=== PATIENT | female | born 2000 | race Caucasian/White ===

== ENCOUNTER → 2022-12-13 | Outpatient (CLI) | payer OTHER ==
[2022-12-13 13:05] LABS: Glucose 3 Hour, Gest 97 mg/dL
== END ==
LOC: LABWHC1 08:22
PROVIDERS: ATTEND Obstetrics & Gynecology
DX: O99.810 Abnormal glucose complicating pregnancy (principal); Z3A.00 Weeks of gestation of pregnancy not specified
CPT/HCPCS: 36415; 82951; 82952

== ENCOUNTER 2023-04-06 19:56 | Outpatient (CLI) | payer OTHER ==
[2023-04-06] MEDS ORDERED: LACTATED RINGERS 1,000 ML IV SCH (21:00)
[2023-04-06 21:29] LABS: Basophils % (A) 0 %; Eosinophils # (A) 0.1 k/uL (0-0.7); Eosinophils % (A) 1 %; HCT 30.4 % (34.0-46.0); HGB 9.6 gm/dL (11.4-16.0); Hypochromasia Slight; Lymphocytes # (A) 1.1 k/uL (1.0-4.8); Lymphocytes % (A) 8 %; MCH 22.8 pg (25.0-35.0); MCHC 31.7 g/dL (31.0-37.0); Mean Platelet Volume 7.4; Microcytosis Moderate; Monocytes # (A) 0.8 k/uL (0-1.0); Monocytes % (A) 5 %; Neutrophils # (A) 12.2 k/uL (1.3-7.7); Neutrophils % (A) 84 %; Platelet Count 298 k/uL (150-450); Poikilocytosis Slight; RBC 4.23 m/uL (3.80-5.40); RDW 15.9 % (11.5-15.5); WBC 14.5 k/uL (3.8-10.6)
[2023-04-06 21:30] LABS: Appearance,Urine Clear (Clear); Bilirubin,Urine Negative (Negative); Blood,Urine Negative (Negative); Color,Urine Light Yellow; Glucose,Urine (UA) Negative (Negative); Ketones,Urine Negative (Negative); Leukocyte Esterase,Urine Negative (Negative); Nitrite,Urine Negative (Negative); PH, Urine 6.5 (5.0-8.0); Protein,Urine Negative (Negative); Specific Gravity,Urine 1.013 (1.001-1.035); Urobilinogen,Urine <2.0 mg/dL (<2.0)
[2023-04-06] MEDS ORDERED: ACETAMINOPHEN IV (For NPO) 1,000 MG in EMPTY BAG 1 BAG IVPB STA (21:56)
[2023-04-07 00:42] VITALS: BP 125/68; PULSE 116; RESP 18; TEMP 98.8
--- NOTE | 2023-04-07 08:05 | P.MSEPDOC ---
Presenting Problems - Arrival Data Date of Arrival on Unit: 04/06/23 Time of Arrival on Unit: 19:56 Mode of Transport: Ambulatory - Complaint OB-Reason for Admission/Chief Complaint: Pain Comment: Pt presents to triage with c/o severe back pain that started around 1030 at. nondenominational this morning. Pt states pain is on her sides and rates it 7 out of 10 Medical History - Information : 1 Para: 0 Term: 0 : 0 Abortions: Spontaneous or Elective: 0 Number of Living Children: 0 - Gestational Age Gestational Age by ERON (wks/days): 32 Weeks and 3 Days Review of Systems - Review of Systems Constitutional: No problems Breast: No problems ENT: No problems Cardiovascular: No problems Respiratory: No problems Gastrointestinal: No problems Genitourinary: No problems Musculoskeletal: No problems Neurological: No problems Skin: No problems Vital Signs - Temperature Temperature: 98.8 F Temperature Source: Temporal Artery Scan - Pulse Pulse Oximetery Pulse Rate: 116 Pulse Assessment Method: Pulse Oximetry - Respirations Respiratory Rate: 18 Oxygen Delivery Method: Room Air O2 Sat by Pulse Oximetry: 99 - Blood Pressure Right Arm Blood Pressure: 125/68 Blood Pressure Mean: 87 Blood Pressure Source: Automatic Cuff Medical Screen Scoring - Assessment - Baby A Baseline FHR: 145 Heart Rate - NICHD Category: Category I (Normal) NST: Reactive Physician Notification - Physician Notified Physician Notified Date: 04/07/23 Physician Notified Time: 19:56 Physician: Rachna Minaya Order Received: Yes - Notification Comment Comment: At 1955, order received from Dr. Minaya, who is in the department, for RN to check pt's cervix, check vital signs and get an NST. At 2040, RN spoke with Dr. Minaya regarding triage pt who previously called her regarding severe back pain. Reported maternal vital signs WNL, reactive NST, no contx, cervix closed/thick/high, right sided back pain that pt rates 7 out of 10 but is in bed laughing with family member, and pt reports only having a few sips of water throughout the day because she does not have an appetite. Reported pt unable to provide urine sample at this time. Order received to start IV, give 1L LR, CBC and send urine sample once pt is able to urinate. RN to call Dr. Minaya with results. At 2152, RN spoke with Dr. Minaya regarding urinalysis and lab results. Reported updated maternal vitals, FHT, no contx, pt still rating pain 6-7 out of 10 but in room laughing and joking with family member. Orders received to give pt ofirmev IVPB and send pt home after infusion complete with instructions for pelvic rest, no heavy lifting, increase PO fluid intake, use heat and to take tylenol as needed. Pt to follow up on 04/[address] Velasco. Maternal Triage Index - Maternal Triage Index Presenting for scheduled procedure w/no complaint: No - Stat/Priority 1 Stat Priority 1: No - Urgent/Priority 2 Urgent Priority 2: Yes Provider Notified: Rachna Minaya Provider Notified Time: 19:56 Criteria Met for Priority 2: 32 2/7 week rating severe right sided back pain 7 out of 10 Disposition - Disposition OB Disposition: Physician follow up in office, Discharge to home, Written follow up instructions reviewed Discharge Date: 04/07/23 Discharge Time: 22:40 I agree with the RN Medical Screening Exam: Yes Case reviewed; plan agreed upon as documented in EMR&OBIX.: Yes Diagnosis: RELATED CONDITIONS, UNSPECIFIED, THIRD TRIMESTER
== END 2023-04-06 22:40 | disposition home or self-care (01) ==
LOC: FBPOP 19:56
PROVIDERS: ATTEND Obstetrics & Gynecology
DX: O26.893 Other specified pregnancy related conditions, third trimester (principal); Z3A.32 32 weeks gestation of pregnancy; Z79.82 Long term (current) use of aspirin
CPT/HCPCS: 85025; 81003; J0131; 59025; 96360; 96367; 99214

== ENCOUNTER 2023-05-05 22:05 | Outpatient (CLI) | payer OTHER ==
[2023-05-05 22:57] LABS: Appearance,Urine Clear (Clear); Bacteria,Urine Rare /hpf; Bilirubin,Urine Negative (Negative); Blood,Urine Negative (Negative); Color,Urine Yellow; Glucose,Urine (UA) Negative (Negative); Ketones,Urine Negative (Negative); Leukocyte Esterase,Urine Small (Negative); Mucus,Urine Rare /hpf; Nitrite,Urine Negative (Negative); Protein,Urine Trace (Negative); RBC,Urine <1 /hpf (0-5); Specific Gravity,Urine 1.012 (1.001-1.035); Squamous Epithelial Cell,Urine 2 /hpf (0-4); Urobilinogen,Urine <2.0 mg/dL (<2.0); WBC,Urine 4 /hpf (0-5)
[2023-05-05 23:23] VITALS: BP 132/78; PULSE 104; RESP 18; TEMP 97.3
--- NOTE | 2023-05-15 19:15 | P.MSEPDOC ---
Presenting Problems - Arrival Data Date of Arrival on Unit: 05/05/23 Time of Arrival on Unit: 22:05 Mode of Transport: Ambulatory - Complaint OB-Reason for Admission/Chief Complaint: Dizziness Comment: Patient presents to triage with complaints of dizziness and nausea that started at 1999. Medical History - Information : 1 Para: 0 - Gestational Age Gestational Age by ERON (wks/days): 36 Weeks and 3 Days Review of Systems - Review of Systems Constitutional: No problems Breast: No problems ENT: No problems Cardiovascular: No problems Respiratory: No problems Gastrointestinal: No problems Genitourinary: No problems Musculoskeletal: No problems Neurological: No problems Skin: No problems Vital Signs - Temperature Temperature: 97.3 F Temperature Source: Temporal Artery Scan - Pulse Pulse Oximetery Pulse Rate: 104 Pulse Assessment Method: Pulse Oximetry - Respirations Respiratory Rate: 18 Oxygen Delivery Method: Room Air O2 Sat by Pulse Oximetry: 98 - Blood Pressure Right Arm Blood Pressure: 132/78 Blood Pressure Mean: 96 Blood Pressure Source: Automatic Cuff Medical Screen Scoring - Assessment - Baby A Baseline FHR: 145 Heart Rate - NICHD Category: Category I (Normal) NST: Reactive Physician Notification - Physician Notified Physician Notified Date: 05/05/23 Physician Notified Time: 22:59 Physician: Mey Basilio New Order Received: Yes (Discharge home) Maternal Triage Index - Maternal Triage Index Presenting for scheduled procedure w/no complaint: No - Stat/Priority 1 Stat Priority 1: No - Urgent/Priority 2 Urgent Priority 2: No - Prompt/Priority 3 Prompt Priority 3: No - Non-Urgent/Priority 4 Non-Urgent Priority 4: Yes Criteria Met for Priority 4: Patient presents to triage with complaints of dizziness and nausea that started at 1999. Disposition - Disposition OB Disposition: Discharge to home I agree with the RN Medical Screening Exam: Yes Case reviewed; plan agreed upon as documented in EMR&OBIX.: Yes Diagnosis: RELATED CONDITIONS, UNSPECIFIED, THIRD TRIMESTER
== END 2023-05-05 23:23 ==
LOC: FBPOP 22:05
PROVIDERS: ATTEND Obstetrics & Gynecology Obstetrics
DX: O26.893 Other specified pregnancy related conditions, third trimester (principal); R42 Dizziness and giddiness; Z3A.36 36 weeks gestation of pregnancy
CPT/HCPCS: 59025; 81001; 99213

== ENCOUNTER 2023-05-12 06:00 | Inpatient (IN) | payer OTHER ==
[2023-05-12] MEDS ORDERED: OXYTOCIN 10 UNIT/ML 1 ML VIAL IM PRN (06:29)
[2023-05-12] MEDS ORDERED: LIDOCAINE 0.5% (PF) 5 MG/ML (50 ML SDV) SQ PRN (06:29)
[2023-05-12] MEDS ORDERED: miSOPROStoL 200 MCG TAB PO PRN (06:29)
[2023-05-12] MEDS ORDERED: TRANEXAMIC 1,000 MG/100ML-NACL 1,000 MG in EMPTY BAG 1 BAG IV PRN (06:29)
[2023-05-12] MEDS ORDERED: CARBOPROST TROMETHAMINE 250 MCG/ML 1 ML AMP IM PRN (06:29)
[2023-05-12] MEDS ORDERED: TERBUTALINE 1 MG/ML VIAL SQ PRN (06:29)
[2023-05-12] MEDS ORDERED: METHYLERGONOVINE 0.2 MG/ML 1 ML AMP IM PRN (06:29)
[2023-05-12] MEDS: LACTATED RINGERS 1,000 ML IV SCH ×2 (06:40→14:37)
[2023-05-12 07:05] LABS: Anisocytosis Slight; Basophils % (A) 0 %; Eosinophils # (A) 0.1 k/uL (0-0.7); Eosinophils % (A) 1 %; HCT 32.7 % (34.0-46.0); HGB 10.5 gm/dL (11.4-16.0); Hypochromasia Moderate; Lymphocytes # (A) 1.5 k/uL (1.0-4.8); Lymphocytes % (A) 14 %; MCH 22.5 pg (25.0-35.0); MCHC 31.9 g/dL (31.0-37.0); MCV 70.6 fL (80.0-100.0); Mean Platelet Volume 7.3; Microcytosis Moderate; Monocytes # (A) 0.5 k/uL (0-1.0); Monocytes % (A) 5 %; Neutrophils # (A) 8.2 k/uL (1.3-7.7); Neutrophils % (A) 78 %; Platelet Count 335 k/uL (150-450); Poikilocytosis Slight; RBC 4.64 m/uL (3.80-5.40); RDW 16.2 % (11.5-15.5); WBC 10.4 k/uL (3.8-10.6)
[2023-05-12] MEDS: OXYTOCIN 30 UNITS/500 ML NS 30 UNIT in SALINE 1 500ML.BAG IV SCH ×2 (07:24→22:29)
[2023-05-12] MEDS ORDERED: ROPIVACAINE 5 MG/ML 20 ML AMPULE ONE (09:41)
[2023-05-12] MEDS ORDERED: SODIUM CHLORIDE 0.9% 100 ML BAG ONE (09:41)
[2023-05-12] MEDS ORDERED: fentaNYL (PF) 50 MCG/ML 5 ML AMP ONE (09:41)
--- NOTE | 2023-05-12 12:56 | P.HPOB ---
History of Present Illness H&P Date: 05/12/23 Chief Complaint: Medical Induction of Labor, Gestational Hypertension Ms. Merlos is a 22 year old at 37 weeks and 3 days (with EDC of 05/30/2023 by LMP c/w 8 week US) who presents for medical induction of labor for gestational hypertension. Last PIH labs were drawn on 04/28/23 which were within normal limits. has also been complicated by iron deficiency anemia with most recent hemoglobin of 9.5 for which the patient has been taking PO supplementation. Most recent growth US of the fetus was at 32 weeks at which time the fetus was measuring in the 56%ile for gestational age. Maternal serologies: blood type A positive, antibody negative, rubella NON- IMMUNE, VDRL non-reactive, HBsAg negative, HIV negative, failed 1 hour GTT but passed 3 hour GTT, GBS negative. Patient received TDap on 03/14/23. Past Medical History Past Medical History: No Reported History History of Any Multi-Drug Resistant Organisms: None Reported Past Surgical History: No Surgical Hx Reported Past Anesthesia/Blood Transfusion Reactions: No Reported Reaction Past Psychological History: No Psychological Hx Reported Smoking Status: Never smoker - Past Family History Mother Family Medical History: No Reported History Father History Unknown: Yes Medications and Allergies Home Medications Medication Instructions Recorded Confirmed Type Vit No.179/Iron/Folic 1 tab PO DAILY 04/06/23 05/12/23 History [ Tablet] Allergies Allergy/AdvReac Type Severity Reaction Status Date / Time No Known Allergies Allergy Verified 05/12/23 06:28 Exam Intake and Output 05/11/23 05/12/23 05/12/23 22:59 06:59 14:59 Other: # Voids 1 Weight 93.44 kg 93.44 kg Focused physical exam is performed. This is a healthy-appearing in no apparent distress. Abdomen is gravid, soft, nontender. Cervical exam is 3cm/60% effaced/-2 station. AROM is undertaken with clear fluid noted. Extremities are non-edematous and non-tender. heart tones are Category I with 140 b aseline/moderate variability/+accerlerations/no decelerations, tocometer shows contractions every 1-3 minutes. Results Result Diagrams: 05/12/23 06:33 Abnormal Lab Results - Last 24 Hours (Table) 05/12/23 Range/Units 06:33 Hgb 10.5 L (11.4-16.0) gm/dL Hct 32.7 L (34.0-46.0) % MCV 70.6 L (80.0-100.0) fL MCH 22.5 L (25.0-35.0) pg RDW 16.2 H (11.5-15.5) % Neutrophils # 8.2 H (1.3-7.7) k/uL Assessment and Plan Assessment: 22 year old at 37 weeks and 3 days presenting for medical induction of labor for gestational hypertension Plan: NPO, mIVF, epidural prn, oxytocin per protocol, close monitoring of patient and continuous EFM of fetus.
[2023-05-12] MEDS ORDERED: KETOROLAC 15 MG/ML 1 ML VIAL IVP STA (22:21)
[2023-05-12] MEDS ORDERED: MORPHINE SULFATE 4 MG/ML SYRINGE IVP STA (22:25)
[2023-05-12] MEDS ORDERED: CITRIC ACID-SODIUM CITRATE 15 ML CUP PO ONE (23:02)
[2023-05-12] MEDS ORDERED: PROPOFOL 10 MG/ML 20 ML VIAL IV ONE (23:11)
[2023-05-12] MEDS ORDERED: DEXAMETHASONE SOD PHOSPHATE 4 MG/ML 1 ML VIAL ONE (23:11)
[2023-05-12] MEDS ORDERED: ONDANSETRON 4 MG/2 ML VIAL ONE (23:11)
[2023-05-12] MEDS ORDERED: HYDROmorphone (PF) 1 MG/ML ONE (23:11)
[2023-05-12] MEDS ORDERED: fentaNYL (PF) 50 MCG/ML 2 ML AMP ONE (23:11)
[2023-05-12] MEDS ORDERED: SUCCINYLCHOLINE CHLORIDE 200 MG/10 ML VIAL IV ONE (23:11)
[2023-05-12] MEDS ORDERED: LIDOCAINE 2% INJ 20 MG/ML (2 ML VIAL) ONE (23:11)
--- NOTE | 2023-05-13 00:32 | P.PROBDLV ---
Vaginal Delivery Note - . Vaginal Delivery Note: DATE OF SERVICE: 05/13/2023 PROCEDURE: Vacuum Assisted Vaginal Delivery ATTENDING: Dr. Marika Velasco MD ESTIMATED BLOOD LOSS: 300 mL FINDINGS: VMI, Apgars 8/9, weight 7#2oz, direct occiput posterior presentation PROCEDURE: Patient was a 22 y/o who presented to labor and delivery for medical induction of labor for gestational hypertension. The patient pushed with very slow progress over 4 hours at which point the head finally reached +2 station. The maternal efforts were still not forceful enough to effect delivery. Therefore, vaccuum delivery was recommended for maternal and well-being. The risks of advanced perineal laceration, skull fraction, and hematoma were discussed with the patient. The baby's head was confirmed to be in the occiput posterior presentation with 100% effacement and +2 station. The vacuum was placed and the correct placement in front of the posterior fontanelle was confirmed digitally. With the patient's next contraction, the vacuum was inflated and a gentle downward pressure was used to assist with brining the baby's head to a +3 station. The head was +4 station and the vacuum was removed. The head was delivered without difficulty.There was no nuchal cord. Shoulders followed by body were delivered without difficulty. The baby's mouth and nose were bulb suctioned. The cord was clamped x2 and cut. Placenta delivered whole with gentle cord traction. Oxytocin was started to facilitate uterine tone. Uterine fundus firm and bleeding minimal upon fundal massage. A fourth degree perineal laceration and a sulcal laceration were noted on perineal exam. Given patient discomfort, the decision was made to repair the laceration under general anesthesia. Please refer to the operative report for further details. Patient stable .
[2023-05-13] MEDS ORDERED: HYDROCORTISONE 2.5% RECTAL CREAM 30 GM TUBE RECTAL PRN (00:41)
[2023-05-13] MEDS ORDERED: MEASLES-MUMPS-RUBELLA VACC/PF 12,500 UNIT/0.5 ML VIAL SQ ONE (00:41)
[2023-05-13] MEDS ORDERED: diphenhydrAMINE 50 MG CAP PO PRN (00:41)
[2023-05-13] MEDS ORDERED: diphenhydrAMINE 50 MG/ML 1 ML VIAL IVP PRN ×2 (00:41)
[2023-05-13] MEDS ORDERED: diphenhydrAMINE 25 MG CAP PO PRN (00:41)
[2023-05-13] MEDS ORDERED: ACETAMINOPHEN TAB 325 MG TAB PO PRN (00:41)
[2023-05-13] MEDS ORDERED: BENZOCAINE/MENTHOL SPRAY 1 GM/SPRAY AEROSOL TOPICAL PRN (00:41)
[2023-05-13] MEDS ORDERED: ZOLPIDEM 5 MG TAB PO PRN (00:41)
[2023-05-13] MEDS ORDERED: LANOLIN CREAM 5 GM TUBE TOPICAL PRN (00:41)
--- NOTE | 2023-05-13 00:41 | P.OP ---
Date of Procedure: 05/13/23 Preoperative Diagnosis: 1. Fourth degree laceration 2. Right sulcal laceration Postoperative Diagnosis: Same Procedure(s) Performed: Fourth degree laceration repair Implants: None Anesthesia: WILLIAM Surgeon: Marika Velasco Director Of Employee Development #1: Quang Griffin Estimated Blood Loss (ml): 500 IV fluids (ml): 300 Urine output (ml): 300 Pathology: none sent Condition: stable Disposition: floor Indications for Procedure: This is a 22-year-old 1 para 1001 status post a vacuum-assisted vaginal delivery found to have a fourth degree laceration. Due to discomfort with the exam, the fourth degree laceration was unable to be repaired in the delivery room. The decision was made to go under general anesthesia for better visualization during the repair. The risks, benefits, and alternatives to surgery were discussed with the patient including risk of bleeding and infection. The patient desires to proceed with surgery. Operative Findings: Fourth degree laceration, right sulcal laceration. After repair of the rectum is well supported and hemostatic. Description of Procedure: The patient was taken to the operating room where spinal anesthesia was found to be adequate. 2 grams of Ancef were given for infection prophylaxis. She was prepared and draped in the dorsal lithotomy position with legs in Carlos stirrups. The apex of the rectal mucosa was identified and repaired with 4-0 Vicryl suture in a running fashion. Next, the internal anal sphincter was reapproximated with 3-0 Vicryl in an interrupted fashion. The external anal sphincter was repaired in an end-to-end fashion with 3-0 Vicryl in an interrupted fashion. Finally, the remaining second degree laceration was repaired with 2-0 Vicryl in the usual fashion. A right sulcal laceration was noted but found to be hemostatic, therefore repair was deferred. The bladder was drained at the end of the procedure for 300cc of clear urine. Fundus was reexamined and found to be firm 2cm inferior to the umbilicus. The patient tolerated the procedure well. All the counts were correct times two. The patient was taken to the recovery room in a stable condition.
[2023-05-13] MEDS ORDERED: OXYTOCIN 30 UNITS/500 ML NS 30 UNIT in SALINE 1 500ML.BAG IV SCH (00:45)
[2023-05-13] MEDS: LACTATED RINGERS 1,000 ML IV SCH ×3 (01:16→19:59)
[2023-05-13 07:06] LABS: Anisocytosis Slight; Basophils % (A) 0 %; Eosinophils # (A) 0.1 k/uL (0-0.7); Eosinophils % (A) 0 %; HCT 20.8 % (34.0-46.0); Hypochromasia Marked; Lymphocytes # (A) 0.9 k/uL (1.0-4.8); Lymphocytes % (A) 4 %; MCH 22.3 pg (25.0-35.0); MCHC 30.5 g/dL (31.0-37.0); MCV 73.1 fL (80.0-100.0); Mean Platelet Volume 7.4; Microcytosis Moderate; Monocytes # (A) 0.9 k/uL (0-1.0); Monocytes % (A) 4 %; Neutrophils # (A) 20.4 k/uL (1.3-7.7); Neutrophils % (A) 91 %; Platelet Count 327 k/uL (150-450); Poikilocytosis Slight; RBC 2.84 m/uL (3.80-5.40); RDW 16.7 % (11.5-15.5); WBC 22.4 k/uL (3.8-10.6)
[2023-05-13 07:14] LABS: HGB 6.3 gm/dL (11.4-16.0)
[2023-05-13] MEDS: IBUPROFEN 600 MG TAB PO PRN ×2 (07:24→18:48)
[2023-05-13] MEDS: polyethylene glycoL 3350 17 GM POWD.PACK PO SCH (07:25)
[2023-05-13] MEDS: SENNOSIDES-DOCUSATE SODIUM 1 EACH TAB PO SCH ×2 (07:25→20:04)
[2023-05-13] MEDS ORDERED: SODIUM FERRIC GLUCONAT-SUCROSE 125 MG in SODIUM CHLORIDE 0.9% 100 ML IVPB SCH (13:00)
--- NOTE | 2023-05-13 13:06 | P.PNOBGVD ---
Subjective - Subjective Principal diagnosis: s/p vaccuum assited vaginal delivery complicated by 4th degree laceration Interval history: The patient is doing well this morning and had no acute events overnight. She has no complaints this morning. She reports moderate lochia, passing flatus, voi ding without difficulty, ambulating, and eating/drinking without nausea or vomiting. She is attempting to get her infant to latch and working with networks software consultant. She denies chest pain, shortness of breathing, fevers, or chills overnight. She denies pain or swelling in the legs. She denies lightheadedness or dizziness. Patient reports: Reports appetite normal, Reports voiding normally, Reports pain well controlled, Reports ambulating normally : doing well Objective - Latest Vital Signs Latest vital signs: Vital Signs Temp Pulse Resp BP Pulse Ox 05/13/23 08:00 98.4 F 93 16 121/78 05/13/23 02:20 114 H 16 116/70 05/13/23 01:50 120 H 16 121/62 05/13/23 01:20 125 H 16 121/62 05/13/23 01:05 90 16 124/67 05/13/23 00:50 86 16 121/63 98 05/13/23 00:35 120 H 16 135/71 100 05/13/23 00:20 97.7 F 130 H 18 116/72 98 Intake and Output 05/12/23 05/13/23 05/13/23 22:59 06:59 14:59 Intake Total 29.167 Output Total 300 1480 Balance -270.833 -1480 Intake: Intake, IV Titration 29.167 Amount Oxytocin 30 Units/500 ml 29.167 Ns 30 unit In Saline 1 500ml.bag @ Per Protocol IV .Q0M [facility] Rx#:[id number] Output: Urine 300 300 Straight 300 Estimated Blood Loss 800 Output, Quantitative 380 Blood Loss - Exam Extremities: Present: normal Abdomen: Present: normal appearance, soft Uterus: Present: normal, firm - Labs Labs: Abnormal Lab Results - Last 24 Hours (Table) 05/13/23 Range/Units 06:21 WBC 22.4 H (3.8-10.6) k/uL RBC 2.84 L (3.80-5.40) m/uL Hgb 6.3 L* D (11.4-16.0) gm/dL Hct 20.8 L (34.0-46.0) % MCV 73.1 L (80.0-100.0) fL MCH 22.3 L (25.0-35.0) pg MCHC 30.5 L (31.0-37.0) g/dL RDW 16.7 H (11.5-15.5) % Neutrophils # 20.4 H (1.3-7.7) k/uL Lymphocytes # 0.9 L (1.0-4.8) k/uL Assessment and Plan Assessment: 22 year old now PPD#1 s/p VAVD c/b 4th degree perineal laceration. Plan: 1. . Patient meeting all milestones appropriately. Continue to monitor. 2. Acute blood loss anemia. Hgb 10 > 6.3. Patient asymptomatic, VSS. Will give Fe infusion today and tomorrow. Repeat CBC tomorrow. If symptomatic, will transfuse. 3. Fourth degree laceration. Stool softners qDay. Oxycodone prn. Will refer to pelvic floor PT outpatient. 4. Viable male at bedside. Will perform circumcision tomorrow.
[2023-05-13] MEDS: FERROUS SULFATE 325 MG TAB PO SCH (18:48)
--- NOTE | 2023-05-14 06:06 | P.PNOBGVD ---
Subjective - Subjective Principal diagnosis: s/p VAVD complicated by fourth degree perineal lac Interval history: The patient is doing well this morning and had no acute events overnight. She has no complaints this morning. She reports moderate lochia as heavy as menses, passing flatus, voiding without difficulty, ambulating, and eating/drinking without nausea or vomiting. She denies headache, visual disturbances, and RUQ pain. She is her without difficulty but some nipple tenderness. She denies lightheadedness and dizziness with ambulation. She denies chest pain, shortness of breathing, fevers, or chills overnight. She denies pain or swelling in the legs. Patient reports: Reports appetite normal, Reports voiding normally : doing well, nursing well Objective - Latest Vital Signs Latest vital signs: Vital Signs Temp Pulse Resp BP Pulse Ox 05/13/23 22:31 98.6 F 109 H 16 119/71 98 05/13/23 15:58 98.1 F 91 16 116/74 05/13/23 12:00 97.4 F L 111 H 15 147/76 05/13/23 08:00 98.4 F 93 16 121/78 - Exam Extremities: Present: normal Abdomen: Present: normal appearance, soft Uterus: Present: normal, firm - Labs Labs: Abnormal Lab Results - Last 24 Hours (Table) 05/13/23 Range/Units 06:21 WBC 22.4 H (3.8-10.6) k/uL RBC 2.84 L (3.80-5.40) m/uL Hgb 6.3 L* D (11.4-16.0) gm/dL Hct 20.8 L (34.0-46.0) % MCV 73.1 L (80.0-100.0) fL MCH 22.3 L (25.0-35.0) pg MCHC 30.5 L (31.0-37.0) g/dL RDW 16.7 H (11.5-15.5) % Neutrophils # 20.4 H (1.3-7.7) k/uL Lymphocytes # 0.9 L (1.0-4.8) k/uL Assessment and Plan Assessment: 22 year old now PPD#2 s/p VAVD c/b 4th degree perineal laceration. Plan: 1. . Patient meeting all milestones appropriately. Continue to monitor. 2. Acute blood loss anemia. Hgb 10 > 6.3 > repeat CBC this AM pending. Patient asymptomatic, VSS aside from intermittent mild tachycardia. On PO iron, home wi th PO iron. If symptomatic, will transfuse. 3. Fourth degree laceration. Stool softners qDay. Oxycodone prn. Will refer to pelvic floor PT outpatient. 4. Viable male at bedside. Consented for circumcision today. Dispo: Possible discharge home today if Hgb stable. If not, will need blood transfusion.
[2023-05-14 06:25] LABS: Anisocytosis Slight; Basophils % (A) 0 %; Eosinophils # (A) 0.1 k/uL (0-0.7); Eosinophils % (A) 1 %; Hypochromasia Marked; Lymphocytes % (A) 10 %; MCH 22.8 pg (25.0-35.0); MCHC 31.2 g/dL (31.0-37.0); MCV 73.1 fL (80.0-100.0); Mean Platelet Volume 7.5; Microcytosis Moderate; Monocytes % (A) 5 %; Neutrophils # (A) 16.7 k/uL (1.3-7.7); Neutrophils % (A) 84 %; Platelet Count 310 k/uL (150-450); Poikilocytosis Slight; RBC 2.39 m/uL (3.80-5.40); RDW 17.3 % (11.5-15.5)
[2023-05-14 07:10] LABS: HCT 17.5 % (34.0-46.0); HGB 5.5 gm/dL (11.4-16.0)
[2023-05-14] MEDS: IBUPROFEN 600 MG TAB PO PRN ×2 (08:11→20:10)
[2023-05-14] MEDS: SENNOSIDES-DOCUSATE SODIUM 1 EACH TAB PO SCH ×2 (08:11→20:00)
[2023-05-14 09:49] LABS: Anisocytosis Slight; Hypochromasia Marked; MCHC 31.5 g/dL (31.0-37.0); MCV 73.1 fL (80.0-100.0); Mean Platelet Volume 7.6; Microcytosis Moderate; Platelet Count 330 k/uL (150-450); Poikilocytosis Slight; RBC 2.47 m/uL (3.80-5.40); RDW 17.2 % (11.5-15.5); WBC 17.7 k/uL (3.8-10.6)
[2023-05-14 09:57] LABS: HCT 18.1 % (34.0-46.0); HGB 5.7 gm/dL (11.4-16.0)
[2023-05-14] MEDS: FERROUS SULFATE 325 MG TAB PO SCH ×2 (14:04→20:01)
[2023-05-14 18:34] LABS: Anisocytosis Slight; Basophils % (A) 0 %; Eosinophils # (A) 0.1 k/uL (0-0.7); Eosinophils % (A) 1 %; HCT 20.9 % (34.0-46.0); Hypochromasia Marked; Lymphocytes % (A) 11 %; MCH 24.1 pg (25.0-35.0); MCHC 32.7 g/dL (31.0-37.0); MCV 73.8 fL (80.0-100.0); Mean Platelet Volume 7.7; Microcytosis Moderate; Monocytes # (A) 0.8 k/uL (0-1.0); Monocytes % (A) 5 %; Neutrophils # (A) 15.4 k/uL (1.3-7.7); Neutrophils % (A) 83 %; Platelet Count 315 k/uL (150-450); Poikilocytosis Slight; RBC 2.83 m/uL (3.80-5.40); RDW 17.3 % (11.5-15.5); WBC 18.5 k/uL (3.8-10.6)
[2023-05-14 18:55] LABS: HGB 6.8 gm/dL (11.4-16.0)
[2023-05-14] MEDS: polyethylene glycoL 3350 17 GM POWD.PACK PO SCH (20:00)
[2023-05-15] MEDS: FERROUS SULFATE 325 MG TAB PO SCH (07:22)
[2023-05-15 07:58] VITALS: BP 119/79; PULSE 90; RESP 16; TEMP 98.2
[2023-05-15] MEDS: SENNOSIDES-DOCUSATE SODIUM 1 EACH TAB PO SCH (08:16)
--- NOTE | 2023-05-15 09:47 | P.PNOBGVD ---
Subjective - Subjective Principal diagnosis: s/p VAVD c/b 4th degree perineal laceration Interval history: The patient is doing well this morning and had no acute events overnight. She has no complaints this morning. She reports minimal lochia, passing flatus, having bowel movements, voiding without difficulty, ambulating, and eating/drinking without nausea or vomiting. She is formula her without difficulty. She denies chest pain, shortness of breathing, fevers, or chills overnight. She denies pain or swelling in the legs. She denies headache, visual disturbances, and RUQ pain. She denies lightheadedness or dizziness with ambulation. Patient reports: Reports appetite normal, Reports voiding normally, Reports pain well controlled, Reports ambulating normally : doing well Objective - Latest Vital Signs Latest vital signs: Vital Signs Temp Pulse Pulse Resp BP BP Pulse Ox 05/15/23 07:56 98.2 F 90 16 119/79 99 05/15/23 04:00 98.1 F 88 18 05/14/23 22:56 98.0 F 98 18 130/67 05/14/23 20:00 98.2 F 101 H 18 123/76 05/14/23 16:00 98.2 F 90 16 132/58 05/14/23 12:00 98.5 F 98 16 123/55 05/14/23 11:14 98.2 F 106 H 16 115/68 05/14/23 10:57 98.4 F 114 H 14 131/81 05/14/23 10:44 98.3 F 16 L 126/81 Intake and Output 05/14/23 05/15/23 05/15/23 22:59 06:59 14:59 Intake Total 310 Balance 310 Intake: Blood Product 310 Rc As-1 Unit 310 [id number] - Exam Extremities: Present: normal Abdomen: Present: normal appearance, soft Uterus: Present: normal, firm - Labs Labs: Abnormal Lab Results - Last 24 Hours (Table) 05/12/23 05/14/23 05/14/23 Range/Units 06:33 08:45 18:11 WBC 17.7 H 18.5 H (3.8-10.6) k/uL RBC 2.47 L 2.83 L (3.80-5.40) m/uL Hgb 5.7 L* 6.8 L* (11.4-16.0) gm/dL Hct 18.1 L* 20.9 L (34.0-46.0) % MCV 73.1 L 73.8 L (80.0-100.0) fL MCH 23.0 L 24.1 L (25.0-35.0) pg RDW 17.2 H 17.3 H (11.5-15.5) % Neutrophils # 15.4 H (1.3-7.7) k/uL Crossmatch See Detail Assessment and Plan Assessment: 22 year old now PPD#3 s/p VAVD c/b 4th degree perineal laceration. Plan: 1. . Patient meeting all milestones appropriately. Continue to monitor. 2. Acute blood loss anemia. Hgb 10 > 6.3 > 5.8 > 1u pRBCs > 6.8 and asymptomatic today, VSS. 3. Fourth degree laceration. Stool softners qDay. 4. Viable male at bedside. s/p circumcision. Dispo: Possible discharge home today.
--- NOTE | 2023-05-15 09:58 | P.DS ---
Providers Date of admission: 05/12/23 06:13 Expected date of discharge: 05/15/23 Attending physician: Marika Velasco MD Primary care physician: Stated None Hospital Course: This is a 22-year-old 001 who is day #3 status post a vacuum- assisted vaginal delivery complicated by a fourth degree perineal laceration that required general anesthesia in the operating room for repair given poor analgesia from her epidural. She also had a hemorrhage with day 2 hemoglobin dropping to 5.8. The patient was overall asymptomatic besides intermittent tachycardia, however the decision was made to transfuse one unit of blood. After transfusion the patient's hemoglobin returned to 6.8 and the patient is feeling very well. She denies any lightheadedness or dizziness with ambulation. The patient is doing very well today. The patient is doing well this morning and had no acute events overnight. She has no complaints this morning. She reports minimal lochia, passing flatus, having bowel movement, voiding without difficulty, ambulating, and eating/drinking without nausea or vomiting. Infant doing well at bedside, s/p circumcision. She denies chest pain, shortness of breathing, fevers, or chills overnight. She denies pain or swelling in the legs. The patient had an course complicated by gestational hypertension. blood pressures have been normotensive to mild range with all less than 150/90. She denies SOARES, visual changes, and RUQ pain. restrictions are reviewed with the patient including pelvic rest for 6 weeks. The patient is encouraged to call the office if she experiences any heavy bleeding, foul-smelling discharge, breast complaints, or any if she has any other concerns. She will follow up in the office with in 1 week for blood pressure check and perineal exam. All questions are answered. Assessment: 22 year old now PPD#3 s/p VAVD after mIOL for gHTN, complicated by 4th degree laceration and hemorrhage. Patient Condition at Discharge: Good Plan - Discharge Summary Discharge Rx Participant: No New Discharge Prescriptions: New Ferrous Sulfate [Feosol] 325 mg PO DAILY #30 tab Docusate [Colace] 100 mg PO DAILY #30 capsule Ibuprofen [Motrin] 600 mg PO Q6HR PRN #30 tab PRN Reason: Mild Pain (Scale 1 To 3) Acetaminophen Tab [Tylenol] 650 mg PO Q6H PRN #30 tab PRN Reason: Mild Pain (Scale 1 To 3) No Action Vit No.179/Iron/Folic [ Tablet] 1 tab PO DAILY Discharge Medication List Vit No.179/Iron/Folic [ Tablet] 1 tab PO DAILY 04/06/23 [History] Acetaminophen Tab [Tylenol] 650 mg PO Q6H PRN #30 tab 05/15/23 [Rx] Docusate [Colace] 100 mg PO DAILY #30 capsule 05/15/23 [Rx] Ferrous Sulfate [Feosol] 325 mg PO DAILY #30 tab 05/15/23 [Rx] Ibuprofen [Motrin] 600 mg PO Q6HR PRN #30 tab 05/15/23 [Rx] Follow up Appointment(s)/Referral(s): Marika Velasco MD [STAFF PHYSICIAN] - 1 Week Patient Instructions/Handouts: Depression (DC), Perineal Care (DC), Bleeding (DC) Activity/Diet/Wound Care/Special Instructions: Pelvic rest for 6 weeks Discharge Disposition: HOME SELF-CARE
[2023-05-15] MEDS: polyethylene glycoL 3350 17 GM POWD.PACK PO SCH (10:05)
== END 2023-05-15 11:00 | disposition home or self-care (01) | DRG 768 ==
LOC: 4FBP 06:13
PROVIDERS: ADMIT Obstetrics & Gynecology; ATTEND Obstetrics & Gynecology
PROC: 10D07Z6 Extraction of Products of Conception, Vacuum, Via Natural or Artificial Opening (ICD-10-PCS; principal; 2023-05-13)
PROC: 0DQP0ZZ Repair Rectum, Open Approach (ICD-10-PCS; 2023-05-13)
PROC: 0KQM0ZZ Repair Perineum Muscle, Open Approach (ICD-10-PCS; 2023-05-13)
PROC: 0DQR0ZZ Repair Anal Sphincter, Open Approach (ICD-10-PCS; 2023-05-13)
PROC: 3E033VJ Introduction of Other Hormone into Peripheral Vein, Percutaneous Approach (ICD-10-PCS; 2023-05-13)
DX: O13.4 Gestational [pregnancy-induced] hypertension without significant proteinuria, complicating childbirth (principal); Z37.0 Single live birth; D62 Acute posthemorrhagic anemia; O70.3 Fourth degree perineal laceration during delivery; O72.1 Other immediate postpartum hemorrhage; O99.02 Anemia complicating childbirth; Z3A.37 37 weeks gestation of pregnancy
CPT/HCPCS: 85025; 85027; 86850; 86900; 86901; 86920; 90707

== ENCOUNTER → 2025-01-04 | Outpatient (CLI) | payer OTHER ==
[2025-01-04 17:49] LABS: Appearance,Urine Clear (Clear); Bilirubin,Urine Negative (Negative); Blood,Urine Negative (Negative); Color,Urine Colorless; Glucose,Urine (UA) Negative (Negative); Ketones,Urine Negative (Negative); Leukocyte Esterase,Urine Negative (Negative); Nitrite,Urine Negative (Negative); PH, Urine 6.5 (5.0-8.0); Protein,Urine Negative (Negative); Specific Gravity,Urine 1.009 (1.001-1.035); Urobilinogen,Urine <2.0 mg/dL (<2.0)
[2025-01-04 18:36] LABS: Anisocytosis Slight; Basophils % (A) 0 %; Eosinophils # (A) 0.1 k/uL (0-0.7); Eosinophils % (A) 1 %; HCT 30.2 % (34.0-46.0); HGB 9.4 gm/dL (11.4-16.0); Hypochromasia Marked; Lymphocytes # (A) 1.6 k/uL (1.0-4.8); Lymphocytes % (A) 12 %; MCH 20.7 pg (25.0-35.0); MCHC 31.2 g/dL (31.0-37.0); MCV 66.4 fL (80.0-100.0); Mean Platelet Volume 6.7; Microcytosis Marked; Monocytes # (A) 0.7 k/uL (0-1.0); Monocytes % (A) 6 %; Neutrophils # (A) 10.5 k/uL (1.3-7.7); Neutrophils % (A) 80 %; Platelet Count 375 k/uL (150-450); Poikilocytosis Moderate; RBC 4.55 m/uL (3.80-5.40); WBC 13.2 k/uL (3.8-10.6)
[2025-01-04 18:39] LABS: Creatinine,Urine Random 47.4 mg/dL; Protein/Creatinine Ratio,Urine 0.274
[2025-01-04 18:45] LABS: ALT 12 U/L (4-34); AST 17 U/L (14-36); African American GFR (CKD) >90 (>60 ml/min/1.73 sqM); Blood Urea Nitrogen 6 mg/dL (7-17); LDH 175 U/L (120-246); Non-African American GFR(CKD) >90 (>60 ml/min/1.73 sqM); Uric Acid 3.2 mg/dL (3.7-7.4)
== END ==
LOC: FBPOP 16:55
PROVIDERS: ATTEND Obstetrics & Gynecology
DX: Z53.9 Procedure and treatment not carried out, unspecified reason (principal)
CPT/HCPCS: 81003; 82565; 82570; 83615; 84156; 84450; 84460; 84520; 84550; 85025

== ENCOUNTER 2025-01-17 14:48 | Outpatient (CLI) | payer OTHER ==
[2025-01-17 16:07] LABS: Anisocytosis Moderate; Basophils % (A) 0 %; Eosinophils # (A) 0.1 k/uL (0-0.7); Eosinophils % (A) 1 %; HCT 31.7 % (34.0-46.0); HGB 9.6 gm/dL (11.4-16.0); Hypochromasia Marked; Lymphocytes # (A) 1.4 k/uL (1.0-4.8); Lymphocytes % (A) 10 %; MCH 20.5 pg (25.0-35.0); MCHC 30.2 g/dL (31.0-37.0); Mean Platelet Volume 7.1; Microcytosis Marked; Monocytes # (A) 0.8 k/uL (0-1.0); Monocytes % (A) 6 %; Neutrophils # (A) 11.3 k/uL (1.3-7.7); Neutrophils % (A) 82 %; Platelet Count 354 k/uL (150-450); Poikilocytosis Slight; RBC 4.66 m/uL (3.80-5.40); RDW 20.4 % (11.5-15.5); WBC 13.8 k/uL (3.8-10.6)
[2025-01-17 16:12] LABS: Appearance,Urine Clear (Clear); Bacteria,Urine Rare /hpf; Bilirubin,Urine Negative (Negative); Blood,Urine Negative (Negative); Color,Urine Light Yellow; Glucose,Urine (UA) Negative (Negative); Ketones,Urine Negative (Negative); Leukocyte Esterase,Urine Trace (Negative); Mucus,Urine Occasional /hpf; Nitrite,Urine Negative (Negative); PH, Urine 6.5 (5.0-8.0); Protein,Urine Negative (Negative); RBC,Urine <1 /hpf (0-5); Specific Gravity,Urine 1.012 (1.001-1.035); Squamous Epithelial Cell,Urine 5 /hpf (0-4); Urobilinogen,Urine <2.0 mg/dL (<2.0); WBC,Urine 3 /hpf (0-5)
[2025-01-17 16:16] LABS: ALT 11 U/L (4-34); AST 17 U/L (14-36); African American GFR (CKD) >90 (>60 ml/min/1.73 sqM); Blood Urea Nitrogen 6 mg/dL (7-17); LDH 182 U/L (120-246); Non-African American GFR(CKD) >90 (>60 ml/min/1.73 sqM); Uric Acid 3.8 mg/dL (3.7-7.4)
[2025-01-17 16:47] LABS: Creatinine,Urine Random 62.7 mg/dL; Protein/Creatinine Ratio,Urine 0.271
[2025-01-17 17:10] VITALS: BP 135/79; PULSE 107; RESP 18; TEMP 97.6
== END 2025-01-17 16:55 | disposition home or self-care (01) ==
LOC: FBPOP 14:48
PROVIDERS: ATTEND Obstetrics & Gynecology
DX: Z53.9 Procedure and treatment not carried out, unspecified reason (principal)
CPT/HCPCS: 59025; 82570; 84156; 82565; 83615; 84450; 84460; 84520; 84550; 85025; 81001; G0463; 99215

== ENCOUNTER 2025-01-19 10:05 | Inpatient (IN) | payer OTHER ==
[2025-01-19] MEDS ORDERED: TRANEXAMIC 1,000 MG/100ML-NACL 1,000 MG in EMPTY BAG 1 BAG IV PRN (10:24)
[2025-01-19] MEDS ORDERED: miSOPROStoL 200 MCG TAB PO PRN (10:24)
[2025-01-19] MEDS ORDERED: CARBOPROST TROMETHAMINE 250 MCG/ML 1 ML AMP IM PRN (10:24)
[2025-01-19] MEDS ORDERED: METHYLERGONOVINE 0.2 MG/ML 1 ML AMP IM PRN (10:24)
[2025-01-19] MEDS ORDERED: OXYTOCIN 10 UNIT/ML 1 ML VIAL IM PRN (10:24)
[2025-01-19 10:59] LABS: Anisocytosis Moderate; Basophils % (A) 0 %; Eosinophils # (A) 0.1 k/uL (0-0.7); Eosinophils % (A) 1 %; HCT 32.3 % (34.0-46.0); HGB 9.7 gm/dL (11.4-16.0); Hypochromasia Marked; Lymphocytes # (A) 1.3 k/uL (1.0-4.8); Lymphocytes % (A) 10 %; MCH 20.4 pg (25.0-35.0); Microcytosis Marked; Monocytes # (A) 0.5 k/uL (0-1.0); Monocytes % (A) 4 %; Neutrophils # (A) 11.1 k/uL (1.3-7.7); Neutrophils % (A) 84 %; Platelet Count 336 k/uL (150-450); Poikilocytosis Moderate; RBC 4.75 m/uL (3.80-5.40); RDW 21.4 % (11.5-15.5); WBC 13.2 k/uL (3.8-10.6)
--- NOTE | 2025-01-19 11:20 | P.HPOB ---
History of Present Illness H&P Date: 01/19/25 Chief Complaint: Scheduled section Ms. Merlos is a 24 year old at 38 weeks and 5 days with EDC of 01/30/2024 who presents for scheduled primary section with bilateral salpingectomy, for chronic hypertension and history of fourth degree perineal laceration after 4 hours of pushing during her last delivery. Her has otherwise been uncomplicated. work-up: blood type A positive, antibody screen negative, rubella immune, VDRL non-reactive, HIV negative, HBsAg negative, HCV Ab non-reactive, gonorrhea negative, chlamydia negative, 1 hour GTT wnl, GBS negative. Obstetric history: 1 VAVD complicated by fourth degree perineal laceration after 4 hours of pushing Past Medical History Past Medical History: No Reported History History of Any Multi-Drug Resistant Organisms: None Reported Past Surgical History: No Surgical Hx Reported Past Anesthesia/Blood Transfusion Reactions: No Reported Reaction Past Psychological History: No Psychological Hx Reported Smoking Status: Never smoker - Past Family History Mother Family Medical History: No Reported History Father History Unknown: Yes Medications and Allergies Home Medications Medication Instructions Recorded Confirmed Type Vit No.179/Iron/Folic 1 tab PO DAILY 04/06/23 01/17/25 History [ Tablet] Ferrous Sulfate [Feosol] 325 mg PO DAILY #30 tab 05/15/23 01/17/25 Rx Allergies Allergy/AdvReac Type Severity Reaction Status Date / Time No Known Allergies Allergy Verified 01/19/25 10:23 Exam Vital Signs Temp Pulse Resp BP Pulse Ox 01/19/25 10:22 97.8 F 119 H 16 135/81 99 Intake and Output 01/18/25 01/19/25 01/19/25 22:59 06:59 14:59 Other: Weight 97.522 kg Focused physical exam performed. Patient in no apparent distress, breathing is non-labored. Abdomen is gravid and non-tender. Extremities are non-tender and non-edematous. heart tones are reactive and reassuring on NST. Results Result Diagrams: 01/19/25 10:38 Abnormal Lab Results - Last 24 Hours (Table) 01/19/25 Range/Units 10:38 WBC 13.2 H (3.8-10.6) k/uL Hgb 9.7 L (11.4-16.0) gm/dL Hct 32.3 L (34.0-46.0) % MCV 68.0 L (80.0-100.0) fL MCH 20.4 L (25.0-35.0) pg MCHC 30.0 L (31.0-37.0) g/dL RDW 21.4 H (11.5-15.5) % Neutrophils # 11.1 H (1.3-7.7) k/uL Assessment and Plan Assessment: 24 year old at 38 weeks and 5 days presenting for scheduled primary section with bilateral salpingectomy for chronic hypertension and history fo vaccuum assisted vaginal delivery with fourth degree laceration after 4 hours of pushing Plan: Admit, NPO, initiate protocol.
[2025-01-19] MEDS: CITRIC ACID-SODIUM CITRATE 15 ML CUP PO ONE (11:25)
[2025-01-19] MEDS ORDERED: NALBUPHINE (ANES) 10 MG/ML - 1 ML AMP ONE (12:06)
[2025-01-19] MEDS ORDERED: OXYTOCIN 10 UNIT/ML 1 ML VIAL ONE (12:06)
[2025-01-19] MEDS ORDERED: PHENYLEPHRINE 10 MG/ML VIAL ONE (12:06)
[2025-01-19] MEDS ORDERED: ONDANSETRON 4 MG/2 ML VIAL ONE (12:06)
[2025-01-19] MEDS ORDERED: MORPHINE SULFATE (PF) 0.3 MG/0.3 ML SYR ONE (12:06)
[2025-01-19] MEDS ORDERED: KETOROLAC 15 MG/ML 1 ML VIAL ONE (12:06)
[2025-01-19] MEDS ORDERED: ZOLPIDEM 5 MG TAB PO PRN (13:01)
[2025-01-19] MEDS ORDERED: diphenhydrAMINE 25 MG CAP PO PRN (13:01)
[2025-01-19] MEDS ORDERED: diphenhydrAMINE 50 MG/ML 1 ML VIAL IVP PRN (13:01)
[2025-01-19] MEDS ORDERED: SIMETHICONE 80 MG CHEWABLE PO PRN (13:01)
[2025-01-19] MEDS ORDERED: LANOLIN CREAM 1 GM TUBE TOPICAL PRN (13:01)
[2025-01-19] MEDS ORDERED: diphenhydrAMINE 50 MG CAP PO PRN (13:01)
[2025-01-19] MEDS ORDERED: NALOXONE 0.4 MG/ML 1 ML VIAL IV PRN (13:01)
--- NOTE | 2025-01-19 13:01 | P.OP ---
Date of Procedure: 01/19/25 Preoperative Diagnosis: 1. Term IUP at 38 weeks and 5 days 2. Chronic Hypertension 3. History of fourth degree laceration 4. Family Planning Postoperative Diagnosis: Same Procedure(s) Performed: Primary Lower Transverse Section with Bilateral Salpingectomy Implants: None Anesthesia: spinal Surgeon: Marika Velasco Packaging Technician #1: Mey Basilio Estimated Blood Loss (ml): 827 IV fluids (ml): 500 Urine output (ml): 125 (clear yellow) Pathology: none sent Condition: stable Disposition: floor Indications for Procedure: Ms. Merlos is a 24 year old at 38 weeks and 5 days gestation presenting for primary section with bilateral salpingectomy. She has chronic hypertension and has a history of a vacuum assisted vaginal after 4 hours of pushing complicated by a fourth degree laceration. The risks, benefits, and alternatives to section were discussed with the patient including risk of bleeding, infection, damage to surrounding structures including bladder/bowels/ureters, and post-operative VTE. The patient understands these risks and desires to proceed with section. The patient is aware that bilateral salpingectomy is irreversible and she will never again be able to become without IVF assistance. Operative Findings: Clear amniotic fluid. Viable female infant in cephalic presentation. Weight 7 pounds and 15 ounces. Normal uterus, bilateral fallopian tubes, and ovaries. Description of Procedure: The patient was taken back to the operating room where spinal anesthesia was found to be adequate. Two grams of Ancef were given for infection prophylaxis. She was prepared and draped in the dorsal supine position with a leftward tilt. A Pfannenstiel skin incision was made with the scalpel. The incision was carried down to the fascia with a bovie. The fascia was incised and extended laterally with Esposito scissors. The superior aspect of the fascia was grasped with the Enzo clamps. The underlying rectus muscle was dissected off sharply with Esposito scissors. In a similar fashion, the inferior aspect of the fascia was elevated with Enzo clamps and the rectus muscle and pyramidalis were dissected off. Excellent hemostasis was achieved with the bovie. The rectus muscle was in the midline down to the level of the pubic symphysis. Pre-peritone al fatty tissue was bluntly dissected to expose the peritoneum. The peritoneum was found to be free of adherent bowel and entered sharply with Esposito scissors. The peritoneal incision was extended superiorly and inferiorly to the bladder reflection with good visualization of the bladder. The bladder blade was inserted and vesicouterine peritoneum was identified. Intraabdominal survey revealed scant, clear peritoneal fluid and the thinned-out lower uterine segment. The vesicouterine peritoneum was opened with scissors and the bladder flap was developed. The bladder blade was repositioned to keep the bladder out of the operative field. The lower uterine segment was incised with a scalpel and clear fluid was noted. The uterine incision was extended bluntly with lateral and upward traction. The fetus was in cephalic presentation. The head was elevated out of the pelvis with special attention paid to avoid using the uterine incision as a fulcrum. Gentle fundal pressure was applied once the head was brought into the incision. The infant was delivered with no difficulty and was noted to be crying spontaneously. The mouth and nose were suctioned with a bulb. The cord was clamped and cut. The was handed off to the customer success associate. IV oxytocin was initiated to facilitate uterine contractions. The placenta was delivered intact with manual massage of uterine fundus. The uterus was then exteriorized and the inside of the uterus was gently wiped with a lap sponge to assure complete removal of placental membranes. The uterine incision was closed with 0-Vicryl suture in a running locked fashion. A second imbricating layer was placed with 0-Vicryl. The ovaries and tubes were found to be normal. The ligasure device was used to sequentially cauterize and cut from the fimbriated end of the fallopian tubes to the cornua, bilaterally. The uterus and ovaries were then gently returned to the abdominal cavity. The abdomen was copiously suction irrigated. The uterine incision was reinspected and excellent hemostasis was noted. The fascial layer was closed with a 0-Vicryl suture. The subcutaneous tissue was reapproximated with 2-0 Plain Gut. The skin was closed with 4-0 Monocryl in a subcuticular fashion.The patient tolerated the procedure well. All the counts were correct times two. The patient was taken to the recovery room in a stable condition. A physician surgical asst was utilized for the entire procedure due to the need for tissue retraction, dissection of vital structures, prevention and management of blood loss, and reduction in overall operative and anesthesia time as is the standard of care.
[2025-01-19] MEDS: METOCLOPRAMIDE 5 MG/ML 2 ML VIAL IVP PRN (14:59)
[2025-01-19] MEDS: diphenhydrAMINE 50 MG/ML 1 ML VIAL IVP PRN (15:00)
[2025-01-19] MEDS: LACTATED RINGERS 1,000 ML IV SCH ×2 (16:42→20:05)
[2025-01-19] MEDS: ONDANSETRON 4 MG/2 ML VIAL IVP PRN (18:01)
[2025-01-19] MEDS: KETOROLAC 15 MG/ML 1 ML VIAL IVP SCH (21:00)
[2025-01-19] MEDS: SENNOSIDES-DOCUSATE SODIUM 1 EACH TAB PO SCH (21:17)
[2025-01-19] MEDS: ACETAMINOPHEN TAB 500 MG TAB PO SCH (23:40)
[2025-01-20 07:26] LABS: Anisocytosis Moderate; Basophils % (A) 0 %; Eosinophils % (A) 0 %; HCT 29.3 % (34.0-46.0); HGB 8.6 gm/dL (11.4-16.0); Hypochromasia Marked; Lymphocytes # (A) 1.1 k/uL (1.0-4.8); Lymphocytes % (A) 9 %; MCH 20.6 pg (25.0-35.0); MCHC 29.4 g/dL (31.0-37.0); MCV 70.1 fL (80.0-100.0); Microcytosis Marked; Monocytes # (A) 0.6 k/uL (0-1.0); Monocytes % (A) 4 %; Neutrophils # (A) 10.9 k/uL (1.3-7.7); Neutrophils % (A) 86 %; Platelet Count 312 k/uL (150-450); Poikilocytosis Slight; RBC 4.19 m/uL (3.80-5.40); RDW 22.2 % (11.5-15.5); WBC 12.7 k/uL (3.8-10.6)
--- NOTE | 2025-01-20 08:09 | P.PN ---
Progress Note - Text Progress Note Date: 01/20/25 (421) Anesthesia Postop day 1 Subjective: Status Post section with Duramorph. Patient seen and examined. Doing well without complaint. VAS 3 out of 10. No nausea or vomiting. Mild pruritus tolerable.. Denies fever. Gross lower extremity strength intact. Without apparent anesthetic complications. Objective: Vital signs reviewed Heart: Regular Rate Lungs: Good chest excursion Abdomen: Appears nondistended Assessment: Status post section with Duramorph postop day 1 Plan: 1. Continue current care with your medical management. Anticipated end to the duration of the Duramorph around surgery time today. You may see increased pain needs around this time. 2. This note was dictated using [employer] software. Please be advised there is a potential for misspellings or errors in transportation security screener.
--- NOTE | 2025-01-20 08:29 | P.PNOBGPC ---
Subjective - Subjective Principal diagnosis: s/p primary section Interval history: The patient is doing well this morning and had no acute events overnight. She has no complaints this morning. She reports minimal lochia, passing flatus, voiding without difficulty, ambulating, and eating/drinking without nausea or vomiting. She is her . She denies chest pain, shortness of breathing, fevers, or chills overnight. She denies pain or swelling in the legs. Patient reports: Reports appetite normal, Reports voiding normally, Reports pain well controlled, Reports ambulating normally : doing well, nursing well Objective - Vital Signs Latest vital signs: Vital Signs Temp Pulse Resp BP Pulse Ox 01/20/25 07:32 98.1 F 79 17 120/78 96 01/20/25 00:00 98.1 F 89 16 122/77 98 01/19/25 20:00 98.2 F 90 16 130/74 98 01/19/25 16:28 95 16 01/19/25 16:00 97.3 F L 95 16 124/76 97 01/19/25 14:58 100 16 125/67 99 01/19/25 14:43 98 16 127/67 100 01/19/25 14:28 78 16 126/71 100 01/19/25 14:13 92 16 121/67 100 01/19/25 13:58 85 16 117/58 95 01/19/25 13:43 83 16 126/59 97 01/19/25 13:28 94 16 122/58 97 01/19/25 13:13 87 16 113/55 97 01/19/25 12:58 96.9 F L 79 16 129/61 98 01/19/25 10:22 97.8 F 119 H 16 135/81 99 Intake and Output 01/19/25 01/20/25 01/20/25 22:59 06:59 14:59 Intake Total 600 0 Output Total 350 400 350 Balance 250 -400 -350 Intake: Oral 600 0 Output: Urine 350 400 350 Uretheral ([place]) 350 Other: Voiding Method Indwelling Catheter # Voids 1 - Exam Extremities: Present: normal Abdomen: Present: normal appearance, soft Incision: Present: normal, dry, intact Uterus: Present: normal, firm - Labs Labs: Abnormal Lab Results - Last 24 Hours (Table) 02/26/25 02/27/25 Range/Units 10:38 07:07 WBC 13.2 H 12.7 H (3.8-10.6) k/uL Hgb 9.7 L 8.6 L (11.4-16.0) gm/dL Hct 32.3 L 29.3 L (34.0-46.0) % MCV 68.0 L 70.1 L (80.0-100.0) fL MCH 20.4 L 20.6 L (25.0-35.0) pg MCHC 30.0 L 29.4 L (31.0-37.0) g/dL RDW 21.4 H 22.2 H (11.5-15.5) % Neutrophils # 11.1 H 10.9 H (1.3-7.7) k/uL Assessment and Plan Assessment: 24 year old now POD#1 s/p primary section with bilateral salpingectomy Plan: 1. Postoperative. Patient meeting all postoperative milestones appropriately. 2. Viable female infant. Doing well at bedside. 3. Chronic HTN. Normotensive since delivery, continue to monitor. Dispo: Anticipate discharge home tomorrow.
[2025-01-20] MEDS: IBUPROFEN 800 MG TAB PO SCH (12:36)
[2025-01-20] MEDS: FERROUS SULFATE 325 MG TAB PO SCH (12:37)
[2025-01-20 17:46] VITALS: RESP 16
[2025-01-21 08:22] VITALS: BP 133/98; PULSE 90; TEMP 97.6
--- NOTE | 2025-01-21 11:46 | P.DS ---
Providers Date of admission: 01/19/25 10:05 Expected date of discharge: 01/21/25 Attending physician: Marika Velasco MD Primary care physician: Stated None Hospital Course: 24 year old now post-op day #2 s/p 1LTCS for history of fourth degree laceration in prior vaginal delivery. The surgery was uncomplicated, please refer to operative report for further details. The patient is doing well this morning and has no complaints. She is tolerating PO, ambulating without difficulty, has light lochia, voiding spontaneously. She is her without difficulty. She denies fevers, chills, chest pain, shortness of b reathing, pain/swelling in the legs. She will go home with prescriptions for tylenol and Motrin. She will follow up in the office in 1 week for BP check. All questions answered. Patient Condition at Discharge: Good Plan - Discharge Summary New Discharge Prescriptions: New Ibuprofen [Motrin] 600 mg PO Q6HR PRN #30 tab PRN Reason: Mild Pain (Scale 1 To 3) Acetaminophen Tab [Tylenol] 650 mg PO Q6H PRN #30 tab PRN Reason: Mild Pain (Scale 1 To 3) No Action Ferrous Sulfate [Feosol] 325 mg PO DAILY #30 tab Vit No.179/Iron/Folic [ Tablet] 1 tab PO DAILY Discharge Medication List Vit No.179/Iron/Folic [ Tablet] 1 tab PO DAILY 04/06/23 [History] Ferrous Sulfate [Feosol] 325 mg PO DAILY #30 tab 05/15/23 [Rx] Acetaminophen Tab [Tylenol] 650 mg PO Q6H PRN #30 tab 01/21/25 [Rx] Ibuprofen [Motrin] 600 mg PO Q6HR PRN #30 tab 01/21/25 [Rx] Follow up Appointment(s)/Referral(s): Marika Velasco MD [STAFF PHYSICIAN] - 1 Week (Post Appointment 03-14-2025 at 1:45 pm) Discharge Disposition: HOME SELF-CARE
== END 2025-01-21 12:40 | disposition home or self-care (01) | DRG 539 ==
LOC: 4FBP 10:05
PROVIDERS: ADMIT Obstetrics & Gynecology; ATTEND Obstetrics & Gynecology
PROC: 0UB70ZZ Excision of Bilateral Fallopian Tubes, Open Approach (ICD-10-PCS; principal; 2025-01-19 12:00)
PROC: 10D00Z1 Extraction of Products of Conception, Low, Open Approach (ICD-10-PCS; principal; 2025-01-19 12:00)
DX: O10.92 Unspecified pre-existing hypertension complicating childbirth (principal); O09.293 Supervision of pregnancy with other poor reproductive or obstetric history, third trimester; Z30.2 Encounter for sterilization; Z3A.38 38 weeks gestation of pregnancy; Z37.0 Single live birth
CPT/HCPCS: 85025; 86850; 86900; 86901; 88302